=== PATIENT | male | born 1955 | race Caucasian/White ===

== ENCOUNTER 2020-04-30 08:26 | Day surgery (SDC) | payer OTHER ==
[~2020-04-30] VITALS: Ht 177.8 cm; Wt 95.7 kg
[~2020-04-30 08:26] MED LIST: ASPI81CH; LOSA50 PO; LOSARTAN POTAS100 M1 PO; Loratadine10 MG PO; Simvastatin20 MG PO; Zocor40 MG PO
--- NOTE | 2020-04-30 10:33 | NUR ---
04/30/20 1033 Kasandra Kulkarni LATE ENTRY PATIENT REFUSED MULTIPLE OFFERS OF PO FLUIDS
== END 2020-04-30 10:25 | disposition home or self-care (01) ==
LOC: ORSCSDS 08:26
PROVIDERS: Surgery
PROC: 0DBL8ZX Excision of Transverse Colon, Via Natural or Artificial Opening Endoscopic, Diagnostic (ICD-10-PCS; principal; 2020-04-30 09:15)
DX: Z12.11 Encounter for screening for malignant neoplasm of colon (principal); Z86.010 Personal history of colon polyps; D12.3 Benign neoplasm of transverse colon; K57.30 Diverticulosis of large intestine without perforation or abscess without bleeding; E78.5 Hyperlipidemia, unspecified; I10 Essential (primary) hypertension; Z87.891 Personal history of nicotine dependence; Z79.82 Long term (current) use of aspirin; Z79.899 Other long term (current) drug therapy
CPT/HCPCS: 88305; J2704; J7120; U0002

== ENCOUNTER 2025-07-29 07:58 | Day surgery (SDC) | payer OTHER ==
[2025-07-29] VITALS (15 sets, daily range): BP systolic 96–138; BP diastolic 48–84
[~2025-07-29] VITALS: Ht 175.3 cm; Wt 90.3 kg
[~2025-07-29 07:58] MED LIST changes: +Crestor40 MG PO
--- NOTE | 2025-07-29 08:34 | NUR ---
Patient States Post-Procedure ride home has been arranged. Patient confirms NPO status AT ABOUT 0430 THIS AM POST PREP and agrees with scheduled surgery.Patient states colon prep results clear. Lungs clear T/O to Auscultation.
--- NOTE | 2025-07-29 09:24 | NUR ---
07/29/25 0924 Misti Montgomery CONFIRMED AND REVIEWED H&P, MEDCICATIONS, ALLERGIES, MEDICAL HISTORY, RESPIRATORY HISTORY, VITAL SIGNS, 3-LEAD EKG, CONSENTS, AND PHYSICIAN ORDERS. PATIENT CONFIRMS NPO STATUS AND AGREES WITH SCHEDULED PROCEDURE. MONITOR INTACT WITH CONTINUOUS PULSE OXIMETRY, CAPNOGRAPHY, 3-LEAD EKG, INTERMITTENT BP. SUPPLEMENTAL O2 TO BE TITRATED THROUGHOUT PROCEDURE TO MAINTAIN O2 SATURATION ABOVE 90%. PATIENT DETERMINED TO BE ASA APPROPRIATE FOR PROPOFOL SEDATION PRIOR TO START OF PROCEDURE BY DR. PFEIFFER.
--- NOTE | 2025-07-29 09:34 | NUR ---
Discharge instructions reviewed with patient. Patient verbalizes understanding. Copy given to patient to take home.
== END 2025-07-29 09:45 | disposition home or self-care (01) ==
LOC: ORSCMMR 07:58 → ORD 09:15 → ORSCMMR 09:15
PROVIDERS: Surgery
PROC: 0DBL8ZX Excision of Transverse Colon, Via Natural or Artificial Opening Endoscopic, Diagnostic (ICD-10-PCS; principal; 2025-07-29 09:15)
DX: Z12.11 Encounter for screening for malignant neoplasm of colon (principal); D12.3 Benign neoplasm of transverse colon; K57.30 Diverticulosis of large intestine without perforation or abscess without bleeding; Z86.0101 Personal history of adenomatous and serrated colon polyps; I10 Essential (primary) hypertension; E78.5 Hyperlipidemia, unspecified; N40.0 Benign prostatic hyperplasia without lower urinary tract symptoms; Z79.82 Long term (current) use of aspirin; Z79.899 Other long term (current) drug therapy; Z87.891 Personal history of nicotine dependence
CPT/HCPCS: 88305; J2704; J7120